=== PATIENT | male | born 1975 | race Caucasian/White ===

== ENCOUNTER → 2016-09-02 | Outpatient (CLI) | payer BC ==
--- NOTE | 2016-09-02 10:09 | DIAGNOSTIC IMAGING REPORT ---
LEFT FIRST TOE 3 VIEWS HISTORY: LEFT 1ST DIGIT TOE COMPARISON: Left foot 05/18/2007. FINDINGS: There is no fracture or dislocation. Soft tissues are unremarkable. On the lateral view only there is a 2 mm linear radiopaque foreign body abutting the distal phalanx of the first toe. This could be due to artifact on the film. This is not identified on the additional images. Mild soft tissue swelling along the medial aspect of the first toe. No bony erosions. Cartilage spaces are maintained. IMPRESSION: On the lateral view only there is a 2 mm linear radiopaque foreign body abutting the distal phalanx of the first toe. This favors artifact on the film rather than a true radiopaque foreign body. Recommend repeat lateral view of the left first toe for confirmation. Electronically signed by: Kanu Kenyon M.D. 09/02/2016 10:07 AM Dictated Date/Time: 09/02/2016 10:05 AM
== END | disposition home or self-care (01) ==
LOC: C.RAD1850 09:32
PROVIDERS: ATTEND Family Medicine
DX: M79.675 Pain in left toe(s) (principal); R93.7 Abnormal findings on diagnostic imaging of other parts of musculoskeletal system

== ENCOUNTER → 2016-09-24 | Outpatient (CLI) | payer BC ==
--- NOTE | 2016-09-24 13:31 | DIAGNOSTIC IMAGING REPORT ---
LEFT GREAT TOE 3 VIEWS CLINICAL HISTORY: Pain and swelling COMPARISON: 09/02/2016 DISCUSSION: No fractures or dislocations are visualized. There are no erosive or destructive changes. No foreign bodies are visualized. IMPRESSION: 1. No evidence of fracture 2. No foreign bodies identified 3. No destructive changes. Electronically signed by: Tyrone Patel M.D. 09/24/2016 1:30 PM Dictated Date/Time: 09/24/2016 1:29 PM
== END | disposition home or self-care (01) ==
LOC: C.RDSM 13:07
PROVIDERS: ATTEND Family Medicine
DX: M79.675 Pain in left toe(s) (principal)